=== PATIENT | male | born 1965 | race Caucasian/White ===

== ENCOUNTER 2023-06-27 17:22 | Emergency (ER) | payer MEDICAID ==
[~2023-06-27] VITALS: Ht 175.3 cm; Wt 80.0 kg
[2023-06-27 22:23] VITALS: BP 125/80; PULSE 76; RESP 16; TEMP 98.2; O2SAT 94
[2023-06-28] MEDS ORDERED: magnesium citrate 296ml oral solution PO ONE (00:10)
== END 2023-06-28 00:40 | disposition home or self-care (01) ==
LOC: ER 17:23
DX: K59.00 Constipation, unspecified (principal)
CPT/HCPCS: 99283

== ENCOUNTER 2023-08-02 09:43 | Emergency (ER) | payer MEDICAID ==
[~2023-08-02] VITALS: Ht 175.3 cm; Wt 74.3 kg
[2023-08-02 12:09] LABS: ALANINE AMINOTRANSFERASE 16 U/L (12-78); ALBUMIN 3.6 G/DL (3.4-5.0); ALKALINE PHOSPHATASE 85 IU/L (46-116); AMYLASE 80 U/L (25-115); ANION GAP 8 (8-16); ASPARTATE AMINO TRANSFERASE 17 U/L (10-37); BILIRUBIN,TOTAL 0.5 MG/DL (0.1-1.0); BLOOD UREA NITROGEN 10 MG/DL (7-18); BUN/CREATININE RATIO 9.1 (10.0-20.0); CALCIUM 8.9 MG/DL (8.5-10.1); CHLORIDE 104 MMOL/L (99-107); GLUCOSE 96 MG/DL (70-104); LIPASE 29 U/L (16-77); POTASSIUM 4.1 MMOL/L (3.5-5.1); SODIUM 140 MMOL/L (135-145); TOTAL CARBON DIOXIDE 28.5 MMOL/L (24-32); TOTAL PROTEIN 7.2 G/DL (6.4-8.2); eCRCL 73 ML/MIN; eGFR 69 ML/MIN
[2023-08-02 12:11] LABS: BASOPHILS # (AUTO) 0.1 X10'3 (0-0.2); BASOPHILS % (AUTO) 0.8 % (0-1); EOSINOPHILS # (AUTO) 0.6 X10'3 (0-0.9); EOSINOPHILS % (AUTO) 8.6 % (0-6); HEMATOCRIT 41.1 % (42.0-52.0); HEMOGLOBIN 12.9 g/dl (14.0-17.9); LYMPHOCYTES # (AUTO) 1.6 X10'3 (1.1-4.8); LYMPHOCYTES % (AUTO) 24.1 % (21-51); MEAN CORPUSCULAR HEMOGLOBIN 22.1 PG (27.0-31.0); MEAN CORPUSCULAR HGB CONC 31.3 g/dL (33.0-36.5); MEAN CORPUSCULAR VOLUME 70.7 FL (78-98); MEAN PLATELET VOLUME 8.3 FL (7.4-10.4); MONOCYTES # (AUTO) 0.6 X10'3 (0-0.9); MONOCYTES % (AUTO) 8.9 % (2-12); NEUTROPHILS # (AUTO) 3.8 X10'3 (1.8-7.7); NEUTROPHILS % (AUTO) 57.6 % (42-75); PLATELET COUNT 266 X10'3 (140-440); RED BLOOD COUNT 5.82 X10'6 (4.70-6.10); RED CELL DISTRIBUTION WIDTH 16.4 % (11.5-14.5); WHITE BLOOD COUNT 6.6 X10'3 (4.5-11.0)
[2023-08-02] MEDS ORDERED: POLY119P2 PO (15:26)
[2023-08-02 15:32] LABS: BILIRUBIN,URINE NEGATIVE (Neg); CLARITY,URINE CLEAR (Clear); COLOR,URINE STRAW (Yellow); GLUCOSE, URINE NEGATIVE (Neg); KETONES,URINE NEGATIVE (Neg); LEUKOCYTE ESTERASE ,URINE NEGATIVE (Neg); NITRITES, URINE NEGATIVE (Neg); OCCULT BLOOD,URINE NEGATIVE (Neg); PROTEIN,URINE NEGATIVE (Neg); UROBILINOGEN,URINE 0.2 E.U/dL (0.2-1.0)
[2023-08-02 15:36] LABS: UA COLLECTION TYPE VOIDED
[2023-08-02] MEDS ORDERED: magnesium citrate 296ml oral solution PO ONE (16:20)
[2023-08-02 16:42] VITALS: BP 120/75; PULSE 83; RESP 16; TEMP 97.7; O2SAT 98
== END 2023-08-02 16:47 | disposition home or self-care (01) ==
LOC: ER 09:43
DX: K59.00 Constipation, unspecified (principal); Z79.899 Other long term (current) drug therapy; Z87.891 Personal history of nicotine dependence
CPT/HCPCS: 36415; 74022; 80053; 81003; 82150; 83690; 85025; 99284